=== PATIENT | female | born 1990 | race African-American/Black ===

== ENCOUNTER 2020-10-20 22:59 | Emergency (ER) | payer MEDICAID ==
[~2020-10-20] VITALS: Ht 157.5 cm; Wt 137.0 kg
[2020-10-21] MEDS ORDERED: ONDANSETRON HCL 4MG/2ML INJ IV SCH (01:30)
[2020-10-21] MEDS ORDERED: SODIUM CHLORIDE 0.9% 1,000 ML IV ONE (01:30)
[2020-10-21] MEDS ORDERED: KETOROLAC 30MG/ML VIAL IV SCH (01:30)
[2020-10-21 01:57] LABS: CHLORIDE 101 mEq/L (98-107)
[2020-10-21 02:04] LABS: BASOPHILS % 0.8 % (0.0-2.0); EOSINOPHILS % 0.7 % (0.0-5.0); HEMATOCRIT. 41.7 % (36.0-48.0); HEMOGLOBIN. 13.8 g/dL (12.0-16.0); LYMPHOCYTES % 13.7 % (20.0-50.0); MEAN CORPUSCULAR HEMOGLOBIN 27.8 pg (28.0-32.0); MEAN CORPUSCULAR VOLUME 83.8 fL (81.0-99.0); MEAN PLATELET VOLUME 8.4 fl (7.4-10.4); MONOCYTES % 5.5 % (2.0-8.0); NEUTROPHILS % 79.3 % (40.0-76.0); PLATELET 322 x1000/uL (130-400); RED BLOOD CELL COUNT 4.97 mill/uL (4.2-5.4); RED CELL DISTRIBUTION WIDTH 14.5 % (11.6-14.6)
[2020-10-21 02:07] LABS: CLARITY URINE CLEAR (CLEAR); COLOR URINE YELLOW (YELLOW); KETONES URINE NEGATIVE (NEGATIVE); LEUKOCYTE ESTERASE URINE 1+ (NEGATIVE); NITRITE URINE NEGATIVE (NEGATIVE); OCCULT BLOOD URINE TRACE (NEGATIVE); PH URINE 7.5 (4.5-8.0); PROTEIN URINE NEGATIVE (NEGATIVE); SPECIFIC GRAVITY URINE 1.013 (1.005-1.030)
[2020-10-21] MEDS ORDERED: CEFTRIAXONE 1 G PREMIX 50 ML IV SCH (04:00)
[2020-10-21] MEDS ORDERED: SULF1TAB48 MT (04:26)
[2020-10-21] MEDS ORDERED: ONDA4TAB5 PO (04:26)
[2020-10-21] MEDS ORDERED: NAPR-681 PO (04:26)
[2020-10-21 05:19] VITALS: BP 140/84
== END 2020-10-21 05:17 | disposition home or self-care (01) ==
LOC: ER 22:59
DX: N39.0 Urinary tract infection, site not specified (principal); I10 Essential (primary) hypertension; R00.0 Tachycardia, unspecified
CPT/HCPCS: 36415; 80053; 81003; 81025; 83690; 85025; 93005; 96361; 96365; 96375; 99284; J0696; J1885; J2405; Z7610

== ENCOUNTER 2021-02-23 08:01 | Emergency (ER) | payer MEDICAID ==
[~2021-02-23] VITALS: Ht 157.5 cm; Wt 134.0 kg
[~2021-02-23 08:01] MED LIST: NAPR-681 PO; ONDA4TAB5 PO; SULF1TAB48 MT
[2021-02-23] MEDS ORDERED: ACET10DR15 LEFT EAR (08:34)
[2021-02-23 08:53] VITALS: BP 125/67
== END 2021-02-23 08:54 | disposition home or self-care (01) ==
LOC: ER 08:17
DX: H60.92 Unspecified otitis externa, left ear (principal); I10 Essential (primary) hypertension; Z98.890 Other specified postprocedural states; Z90.49 Acquired absence of other specified parts of digestive tract; Z79.899 Other long term (current) drug therapy
CPT/HCPCS: 99282